=== PATIENT | female | born 1985 | race Caucasian/White ===

== ENCOUNTER 2018-06-15 21:37 | Emergency (ER) | payer BC ==
[~2018-06-15] VITALS: Ht 170.2 cm; Wt 64.7 kg
[2018-06-15 22:08] LABS: APPEARANCE SL.HAZY ((CLEAR)); BILIRUBIN NEGATIVE; BLOOD SMALL; COLOR AMBER ((YELLOW)); GLUCOSE (STRIP) NEGATIVE; KETONES 5; LEUKOCYTES MODERATE; NITRITE POSITIVE; PROTEIN (STRIP) 100; SPECIFIC GRAVITY 1.011 (1.000-1.030)
[2018-06-15 22:22] LABS: BASOPHIL (%) 0.4 % (0-1); EOSINOPHIL (%) 0.3 % (0-5); HEMATOCRIT 40.6 % (36.0-46.0); IMMATURE GRANULOCYTE (%) 0.4 % (0.0-0.7); LYMPHOCYTE (%) 7.6 % (15-42); LYMPHOCYTE COUNT 0.8 K/uL (1.0-2.8); MCH 32.1 PG (29.0-34.0); MCHC 34.5 G/DL (30.0-36.0); MCV 93.1 FL (83-99); MONOCYTE (%) 7.7 % (3-12); MONOCYTE COUNT 0.8 K/uL (0-0.8); NEUTROPHIL (%) 83.6 % (45-76); NEUTROPHIL COUNT 9.1 K/uL (1.8-6.4); PLATELET COUNT 232 K/uL (156-360); RBC DIS.WIDTH-CV 11.8 % (11.8-14.6); RBC DIS.WIDTH-SD 40.7 % (39-53); RED BLOOD COUNT 4.36 M/uL (3.80-5.20); WHITE BLOOD COUNT 10.9 K/uL (4.1-10.2)
[2018-06-15 22:30] LABS: CHLORIDE 102 mEq/L (99-109); POTASSIUM 3.6 mEq/L (3.7-5.4); SODIUM 136 mEq/L (136-147)
[2018-06-15 22:31] LABS: BACTERIA 2+ /HPF; EPITHELIAL CELLS 1+ /HPF; MUCUS NONE SEEN /LPF; RED BLOOD CELLS 0-5 /HPF (0-5); WHITE BLOOD CELLS 40-50 /HPF (0-5)
[2018-06-15 22:31] LABS: GLUCOSE 109 mg/dL (70-99)
[2018-06-15 22:35] LABS: CREATININE 0.9 mg/dL (0.6-1.3)
[2018-06-15 22:36] LABS: UREA NITROGEN (BUN) 9 mg/dL (9-23)
[2018-06-15 22:39] LABS: GFR ESTIMATE (CALCULATED) > 59 mL/min/
[2018-06-15] MEDS ORDERED: KEFLEX500 MG PO (23:32)
[2018-06-15] MEDS ORDERED: NAPROSYN500 MG PO (23:32)
[2018-06-16] MEDS ORDERED: BACTRIM,SEPT1 TABLET PO (01:25)
[2018-06-16] MEDS ORDERED: BENADRYL50 MG PO (01:28)
[2018-06-16] MEDS ORDERED: ZANTAC150 MG PO (01:28)
[2018-06-16] MEDS ORDERED: PREDNISONE20 MG PO (01:28)
[2018-06-16 01:51] VITALS: BP 94/69
== END 2018-06-16 01:52 | disposition home or self-care (01) ==
LOC: EME 21:37
PROVIDERS: Physician Assistant
DX: N12 Tubulo-interstitial nephritis, not specified as acute or chronic (principal); R13.10 Dysphagia, unspecified; T36.1X5A Adverse effect of cephalosporins and other beta-lactam antibiotics, initial encounter; Z87.440 Personal history of urinary (tract) infections
CPT/HCPCS: 74176; 80048; 81003; 83605; 85025; 87040; 87077; 87086; 87186; 99281; 99285; J0696; J1200; J1885; J2405; J2930; J7030; S0028